=== PATIENT | male | born 1950 | race Caucasian/White ===

== ENCOUNTER 2020-07-21 15:55 | Emergency (ER) | payer MEDICARE, OTHER ==
[2020-07-21 16:08] VITALS: BP 151/85; PULSE 95
[2020-07-21] MEDS ORDERED: Ondansetron 4 MG/2 ML SDV IVPUSH ONE (16:35)
--- NOTE | 2020-07-21 16:43 | EDM.PDOC ---
ED HPI GENERAL MEDICAL PROBLEM - General Chief Complaint: Gastrointestinal Problem Stated Complaint: stomach pain Time Seen by Provider: 07/21/20 16:20 Source of Information: Reports: Patient History Limitations: Reports: No Limitations - History of Present Illness INITIAL COMMENTS - FREE TEXT/NARRATIVE: Perry is a 70 year old male who presents to ER with a 5 day history of int ermittent abdominal pain. States Wednesday, developed cramping in his abdomen, decreased appetite and dry heaves. Was not able to eat that day. On and Wednesday, was able to eat as pain was improved. "even went golfing that day". Wednesday night, pain started again. Yesterday, admits felt miserable. Vomited x3. No fevers or diarrhea. Continues to have abdominal cramping. No vomiting today but relates that if drinks more than a few sips, will have dry heaves. Has been trying to drink water more today. Relates has lost 10# in the last 5 days as a result. History of diabetes, type II. Has not checked his blood sugars during this illness. Denies alcohol use or nicotine. Onset: Gradual Duration: Day(s):, Waxing/Waning Location: Reports: Abdomen Quality: Reports: Ache Severity: Moderate Improves with: Reports: None Worsens with: Reports: Eating Associated Symptoms: Reports: Confusion, Loss of Appetite, Nausea/Vomiting. Denies: Chest Pain, Cough, Fever/Chills, Shortness of Breath, Weakness Abdomen Pain Score (Numeric/FACES): 7 - Related Data Allergies Allergy/AdvReac Type Severity Reaction Status Date / Time No Known Allergies Allergy Verified 07/21/20 16:01 Home Meds: Home Meds Apixaban [Eliquis] 5 mg PO BID 10/28/15 [History] Simvastatin [Zocor] 20 mg PO BEDTIME 10/28/15 [History] metFORMIN [Glucophage] 1 tab PO BID 10/28/15 [History] Past Medical History Cardiovascular History: Reports: High Cholesterol, CT, Stents, Other (See Below) Other Cardiovascular History: CT in 2003 with 1 stent placed Endocrine/Metabolic History: Reports: Diabetes, Type II - Past Surgical History HEENT Surgical History: Reports: Tonsillectomy Musculoskeletal Surgical History: Reports: Shoulder Surgery, Other (See Below) Other Musculoskeletal Surgeries/Procedures:: meniscus repair 2007, ligament repair to left arm April 2020 Social & Family History - Tobacco Use Tobacco Use Status *Q: Never Tobacco User - Caffeine Use Caffeine Use: Reports: Soda Caffeine Use Comment: Drinks "a lot of mountain dew" - Recreational Drug Use Recreational Drug Use: No ED ROS GENERAL - Review of Systems Review Of Systems: See Below Constitutional: Reports: Malaise, Weakness, Fatigue. Denies: Fever, Chills HEENT: Denies: Ear Pain, Sinus Problem, Throat Pain, Vertigo Respiratory: Denies: Shortness of Breath, Cough Cardiovascular: Denies: Chest Pain, Edema, Lightheadedness Endocrine: Reports: Fatigue GI/Abdominal: Reports: Abdominal Pain, Nausea, Vomiting : Reports: No Symptoms Musculoskeletal: Reports: No Symptoms Skin: Reports: No Symptoms Neurological: Reports: Weakness ED EXAM, GI/ABD - Physical Exam Exam: See Below Exam Limited By: No Limitations General Appearance: Alert, WD/WN, No Apparent Distress Ears: Normal External Exam, Normal TMs Nose: Normal Inspection, Normal Mucosa, No Blood Throat/Mouth: Normal Inspection, Normal Oropharynx Head: Normocephalic Neck: Normal Inspection, Supple, Non-Tender Respiratory/Chest: No Respiratory Distress, Lungs Clear, Normal Breath Sounds Cardiovascular: Regular Rate, Rhythm GI/Abdominal Exam: Normal Bowel Sounds, Soft, Tender (diffusely throughout) Extremities: Normal Inspection, No Pedal Edema Neurological: Alert, Oriented Skin Exam: Warm, Dry Course - Vital Signs Last Recorded V/S: Last Vital Signs Temp 97.1 F 07/21/20 16:05 Pulse 95 07/21/20 16:05 Resp 20 07/21/20 16:05 BP 151/85 H 07/21/20 16:05 Pulse Ox 97 07/21/20 16:05 - Orders/Labs/Meds Orders: Active Orders 24 hr Category Date Time Status Sodium Chloride 0.9% [Normal Saline] 1,000 ml Med 07/21/20 16:45 Active IV ASDIRECTED Medication Orders Sodium Chloride (Normal Saline) 1,000 mls @ 250 mls/hr IV ASDIRECTED ELIZA Last Admin: 07/21/20 16:48 Dose: 250 mls/hr Documented by: [email or web address] Labs: Laboratory Tests 07/21/20 07/21/20 07/21/20 Range/Units 16:08 16:08 16:09 WBC 8.8 (5.0-10.0) 10^3/uL RBC 6.21 H (4.50-6.00) 10^6/uL Hgb 19.7 H* (14.0-18.0) g/dL Hct 55.5 H (40.0-54.0) % MCV 89.4 (82.0-94.0) fL MCH 31.7 (27.0-32.0) pg MCHC 35.5 (33.0-38.0) g/dL RDW Coeff of Barbra 12.6 (11.0-15.0) % Plt Count 159 (150-400) 10^3/uL Neut % (Auto) 63.8 (35-85) % Lymph % (Auto) 23.6 (10-55) % [place] % (Auto) 11.7 (0-16) % Eos % (Auto) 0.7 (0-5) % Baso % (Auto) 0.2 (0-3) % Neut # (Auto) 5.64 (1.80-7.00) 10^3/uL Lymph # (Auto) 2.09 (1.00-4.80) 10^3/uL [place] # (Auto) 1.03 H (0.00-0.80) 10^3/uL Eos # (Auto) 0.06 (0.00-0.45) 10^3/uL Baso # (Auto) 0.02 10^3/uL Sodium 136 (136-145) mEq/L Potassium 5.4 H (3.5-5.0) mEq/L Chloride 100 (98-106) mEq/L Carbon Dioxide 20 L (21-32) mmol/L BUN 37 H (7-18) mg/dL Creatinine 1.3 (0.7-1.3) mg/dL Est Cr Clr Drug Dosing 56.52 mL/min Estimated GFR (MDRD) 55 L (>=60) mL/min Glucose 183 H (75-99) mg/dL Calcium 9.0 (8.4-10.1) mg/dL Total Bilirubin 4.3 H (0.0-1.0) mg/dL AST 20 (15-37) U/L ALT 37 (12-78) U/L Alkaline Phosphatase 91 (46-116) U/L C-Reactive Protein < 0.2 L (0.2-0.8) mg/dL Total Protein 7.7 (6.4-8.2) g/dL Albumin 3.9 (3.4-5.0) g/dL Amylase 39 (25-115) U/L Lipase 120 (73-393) U/L Urine Color Yellow (YELLOW) Urine Appearance Clear (CLEAR) Urine pH 5.5 (4.5-8.0) Ur Specific [place] 1.025 H (1.003-1.020) Urine Protein Negative (NEGATIVE) mg/dL Urine Glucose (UA) 500 H (NEGATIVE) mg/dL Urine Ketones 40 H (NEGATIVE) mg/dL Urine Occult Blood Negative (NEGATIVE) Urine Nitrite Negative (NEGATIVE) Urine Bilirubin Negative (NEGATIVE) Urine Urobilinogen 0.2 (0.2-1.0) EU/dL Ur Leukocyte Esterase Negative (NEGATIVE) Meds: Medications Generic Name Dose Route Start Last Admin Trade Name Freq PRN Reason Stop Dose Admin Sodium Chloride 1,000 mls @ 250 mls/hr 07/21/20 16:45 07/21/20 16:48 Normal Saline IV 250 mls/hr ASDIRECTED ELIZA Administration Discontinued Medications Generic Name Dose Route Start Last Admin Trade Name Freq PRN Reason Stop Dose Admin Ondansetron HCl 4 mg 07/21/20 16:35 07/21/20 16:48 Ondansetron 4 Mg/2 Ml Sdv IVPUSH 07/21/20 16:36 4 mg NOW ONE Administration - Re-Assessments/Exams Free Text/Narrative Re-Assessment/Exam: 07/21/20 17:34 Labs show no indication of infection as WBC and CRP are normal. UA is clear. BUN, Hemoglobin and potassium mildly elevated, likely due to dehydration. Specific gravity 1.025 of urine. IV fluids given. Zofran given. Feels somewhat better at this time. Departure - Departure Time of Disposition: 17:35 Disposition: Home, Self-Care 01 Condition: Fair Clinical Impression: Gastroenteritis - Discharge Information *PRESCRIPTION DRUG MONITORING PROGRAM REVIEWED*: No *COPY OF PRESCRIPTION DRUG MONITORING REPORT IN PATIENT REBECCA: No Instructions: Dehydration, Adult, [id number], Viral Gastroenteritis, Adult, [id number] Referrals: PCP,Unknown [Primary Care Provider] - Forms: ED Department Discharge Additional Instructions: 1. Push fluids in small frequent amounts 2. [place] diet when able. 3. Zofran 4 mg under the tongue every 4-6 hours as needed for nausea/vomiting 4. If pain increases or persists, become febrile, vomiting persists, will need to be reevaluated 5. Call with any questions or concerns. Sepsis Event Note (ED) - Evaluation Sepsis Screening Result: No Definite Risk - Focused Exam Vital Signs: Vital Signs Temp Pulse Resp BP Pulse Ox 07/21/20 16:05 97.1 F 95 20 151/85 H 97 - My Orders Last 24 Hours: My Active Orders 07/21/20 16:45 Sodium Chloride 0.9% [Normal Saline] 1,000 ml IV ASDIRECTED - Assessment/Plan Last 24 Hours: My Active Orders 07/21/20 16:45 Sodium Chloride 0.9% [Normal Saline] 1,000 ml IV ASDIRECTED
[2020-07-21] MEDS ORDERED: Sodium Chloride 0.9% 1,000 ML IV SCH (16:45)
[2020-07-21 16:58] LABS: CHLORIDE,CL 100 mEq/L (98-106)
[2020-07-21 17:10] LABS: SODIUM,NA 136 mEq/L (136-145)
[2020-07-21] MEDS ORDERED: Take Home: Ondansetron 4 MG Tab.DIS, 2 Tab Pack PO ONE (17:37)
== END 2020-07-21 18:52 | disposition home or self-care (01) ==
LOC: CC.ED 15:55
DX: K52.9 Noninfective gastroenteritis and colitis, unspecified (principal); E78.00 Pure hypercholesterolemia, unspecified; I25.2 Old myocardial infarction; E11.9 Type 2 diabetes mellitus without complications; Z79.01 Long term (current) use of anticoagulants; Z79.84 Long term (current) use of oral hypoglycemic drugs; Z79.899 Other long term (current) drug therapy
CPT/HCPCS: 36415; 80053; 81003; 82150; 83690; 85025; 86140; 96374; 99284; J2405; J7030